=== PATIENT | male | born 1955 | race Caucasian/White ===

== ENCOUNTER 2021-03-02 08:56 | Outpatient (CLI) | payer MEDICARE, OTHER | END 2021-03-02 08:57 | disposition home or self-care (01) | LOC: DI 08:56 | PROVIDERS: ATTEND Internal Medicine | DX: I48.91 Unspecified atrial fibrillation (principal); R00.1 Bradycardia, unspecified; I51.7 Cardiomegaly; I35.1 Nonrheumatic aortic (valve) insufficiency; I70.0 Atherosclerosis of aorta | CPT/HCPCS: 93306 ==

== ENCOUNTER 2023-09-26 12:26 | Outpatient (CLI) | payer MEDICARE, OTHER ==
--- NOTE | 2023-09-26 22:47 | SLEEP CARE CONSULTATION ---
Information from patient questionnaire entered by Latisha Alcaraz. I have reviewed and concur with the information entered by Latisha Alcaraz. This document represents the service I personally performed and the decisions made by me, Km Catherine MD, [facility]. History of Present Illness Service Date and Time: 09/26/2023 1226 Reason for Visit: New patient Chief Complaint: reports: Snoring Date of Onset: ALWAYS Usual bedtime: 2200 Time it takes to fall asleep: 10MINS Snores at night: Yes Observed to quit breathing while asleep: No Sleeps alone due to snoring: Yes Number of times waking at night: 2 Reasons for waking at night: reports: Bathroom Toss, Turn, or Twitch while sleeping: No Recalls having dreams: Yes Feels refreshed in the morning: Yes Morning headache: No Sleepy or fatigued during the day: No Ever fallen asleep while driving: No Takes day naps: Yes Dreams during day naps: Yes Prior sleep studies: Yes Additional HPI information: I had the pleasure of seeing Mr. Miguel today regarding obstructive sleep apnea-hypopnea. As you know, he is a 67-year-old gentleman who was diagnosed with the sleep-disordered breathing 17 years ago in [place]. He struggled to use his CPAP for about 10 years then quit. His current machine is a ResMed AirSense 10. He wore a nasal mask. He reports sleeping fine without the CPAP. His main complaint is loud snore and he wonders if he should go back and use his CPAP again. His has not gotten any supplies from [facility] for many years. The patient tells me that he normally goes to bed around 10 pm, and it takes him approximately 10 minutes to fall asleep. He has been told that he snores loudly and irregularly at night. He has never been observed to stop breathing in his sleep. He can recall waking up on the average of 2 times during the night. Most of the time he wakes up because of having to use the bathroom. He has never awakened because of his own snoring, choking, or having to gasp for air. There is not a lot of tossing and turning in his sleep. No somniloquy (sleep talking) or somnambulism (sleep walking). Generally, he can recall having dreams. He usually does not have a morning headache. During the day he does not feel sleepy or fatigued. His score on [place] Sleepiness Scale is 6 out of 24. He never has fallen asleep while driving nor has had any accident due to sleepiness. He usually takes a nap during the day. He denies having impaired concentration during the day. - Parasomnia Symptoms Ever been unable to move upon waking from sleep: No Walks in sleep: No Talks in sleep: No Ever acted out dreams in sleep: No Ever felt weak in the knees when startled or emotional: No Bothered by creepy, crawly, restless sensations in legs: No Problems with memory or concentration: No Subjective Initial [place] Sleepiness Scale score: 6 (09/22/23) Past Medical History Past Medical History: reports: Coronary Heart Disease Social History The patient's occupation is a RETIRED. Patient is and lives in . Have you smoked in the past 12 months: No Alcohol use: No Caffeine use: No Family History Family history of sleep disordered breathing: No Allergies and Home Medications Known drug allergies: No Drug allergies reviewed: Yes Home medication list reviewed: Yes Allergy and home medication list: Allergies No Known Drug Allergies Allergy (Verified 09/26/23 08:55) Review of Systems Cardiovascular: denies: high blood pressure, palpitations, chest pain, irregular heart rate or pulse, leg or foot swelling, have to sleep sitting up, other Respiratory: denies: shortness of breath, wheeze, sputum production, chronic cough, other Gastrointestinal: denies: heartburn, difficulty swallowing, nausea, vomitting, diarrhea, abdominal pain, other Urinary: denies: incontinence, frequency, urgency, impotence, other Neurological: denies: headaches, seizure, head trauma, disorientation, speech dysfunction, gait or balance problems, fainting or unconsciousness, other Psychiatric: denies: Attention Deficit Hyperactivity, anxiety, depression, mood disorder, claustrophobia, other Ear/Nose/Throat: reports: wisdom teeth removed Endocrine: denies: thyroid disease, history of goiter, sluggishness, too hot or cold, excessive thirst, increased appetite, increased urination, unexplained weakness, other Musculoskeletal: denies: joint pain, neck pain, back pain, joint swelling, muscle pain or cramping, mobility problems, other Immunologic: reports: itching Physical Exam Vital signs obtained and entered by: LATISHA Pool MA Blood Pressure: 139/66 (RIGHT ARM) Cuff size: regular Heart Rate: 55 O2 Saturation: 96 Height: 5 ft 10 in Weight: 195 lb 9.6 oz Body Mass Index: 28.0 BMI Classification: Overweight Neck circumference: 16.5 Mood/affect: normal HEENT: No craniofacial malformation Nostrils: patent to airflow Turbinates: normal Septum: midline Mouth and throat: narrow oropharynx Soft palate: long Hard palate: normal Uvula: normal Uvula visualization: 25% Mallampati Class III Tongue: normal in size Tonsils: absent bilaterally Chin and jaw: normal size and position Neck: normal w/o lymphadenopathy or thyromegaly Heart: regular rate and rhythm Lungs: clear bilaterally Extremities: no edema or clubbing Neurologic: intact Impression and Plan IMPRESSION: 1. Obstructive Sleep Apnea-Hypopnea Syndrome, as previously diagnosed. The severity is unknown as we do not have the report of his sleep study from 17 years ago. The patient would like to start using his CPAP again but lacks supplies. I explained to him that in order for his insurance Medicare to cover the treatment, there has to be a recent sleep study to show significant sleep-disordered breathing and its severity. I informed the patient of what the sleep studies involve and after some discussion, he agreed to proceed. Plan: 1. Schedule an in-laboratory polysomnography. Do not use the CPAP at least one night prior to the sleep study. 2. Respironics Nuance nasal pillows given to him to use with his old machine while waiting for his sleep study. 3. Avoid alcohol, sedatives, and muscle relaxants around bedtime. 4. Attempt to lose weight. Mask provided: Yes Counseling Topics: Weight control Follow up with Sleep Care in: 1-2 months Follow up recommended for: Weight management Visit Type: In Office Time Spent with Patient (minutes): 15 Provider Statement: I spent 100% of the Face to Face Visit with the patient with greater than 50% spent counseling the patient and coordination of care.
[2023-09-26 22:52] VITALS: BP 139/66; O2SAT 96
== END 2023-09-26 12:27 | disposition home or self-care (01) ==
LOC: SC 12:26
PROVIDERS: ATTEND Internal Medicine Pulmonary Disease
DX: G47.33 Obstructive sleep apnea (adult) (pediatric) (principal)
CPT/HCPCS: 99202; G0463; 99212

== ENCOUNTER 2023-10-10 19:11 | Outpatient (CLI) | payer MEDICARE, OTHER | END 2023-10-10 19:12 | disposition home or self-care (01) | LOC: SC 19:11 | PROVIDERS: ATTEND Internal Medicine Pulmonary Disease | DX: G47.33 Obstructive sleep apnea (adult) (pediatric) (principal); G47.61 Periodic limb movement disorder | CPT/HCPCS: 95810 ==

== ENCOUNTER 2023-11-28 14:14 | Outpatient (CLI) | payer MEDICARE, OTHER ==
--- NOTE | 2023-11-28 17:45 | SLEEP CARE CONSULTATION ---
Information from patient questionnaire entered by Latisha Alcaraz. I have reviewed and concur with the information entered by Latisha Alcaraz. This document represents the service I personally performed and the decisions made by me, Km Catherine MD, [facility]. History of Present Illness Service Date and Time: 11/28/2023 1414 Current [place] Sleepiness Scale score: 7 (11/27/23) Additional HPI information: Mr. Miguel returned for follow up of the sleep study he had on 10-10-23. The polysomnography showed that the patient had reduced sleep efficiency due to prolonged awakening in the middle of the night. The sleep architecture was abnormal for sleep fragmentation and lack of slow wave sleep (N3). Respiratory monitoring showed severe obstructive sleep apnea-hypopnea (AHI = 31.8) associated with frequent arousals, oxyhemoglobin desaturation and moderate hypoxia (courtney oxygen saturation of 65%). Baseline oxygen saturation was normal. The respiratory events occurred more frequently during supine sleep (supine AHI = 50.3; non-supine = 23.59). Snore was intermittent and light in intensity. There was severe periodic leg movement of sleep contributing to the sleep fragmentation. Cardiac rhythm was normal sinus rhythm without significant arrhythmia. No abnormal behavior (parasomnia) observed during the night. The patient was informed of these findings. I explained to him the pathophysiology behind obstructive sleep apnea. We then spent quite a bit of time discussing different treatment options. For mild obstructive sleep apnea, surgery and oral appliance are alternatives to nasal CPAP therapy but in moderate or severe cases, nasal CPAP is the most effective and reliable treatment. Weight loss in an obese individual is strongly recommended. Presently, he has a ResMed AirSense 10 that he uses once a while to eliminate snoring. It is well over 5 years old. Sleep Study - Results Type of Sleep Study: Polysomnography (COMPLETED 10/10/23) Allergies and Home Medications Drug allergies reviewed: Yes Home medication list reviewed: Yes Allergy and home medication list: Allergies No Known Drug Allergies Allergy (Verified 11/23/23 13:56) Review of Systems Review of systems same as previous: Yes (NO CHANGE) Physical Exam Vital signs obtained and entered by: LATISHA Pool MA Blood Pressure: 138/72 (RIGHT ARM) Cuff size: regular Heart Rate: 56 O2 Saturation: 98 Height: 5 ft 10 in Weight: 197 lb 9.6 oz Body Mass Index: 28.3 BMI Classification: Overweight Impression and Plan IMPRESSION: 1. Obstructive Sleep Apnea-Hypopnea Syndrome, severe, associated with moderate hypoxemia and sleep fragmentation. The patient is surprisingly asymptomatic. As mentioned above, the patient will be started on an autoCPAP set between 4 and 12 cmH2O. Depending on his response and compliance he may be brought back for an overnight CPAP titration study. PLAN: 1. Prescription made for an autoCPAP, heated humidifier, and related supplies. 2. Attempt to lose weight and avoid alcohol consumption near bedtime. 3. Return for follow up after one month of using the CPAP. Counseling Topics: Weight loss health impact Prescriptions: Auto CPAP Follow up with Sleep Care in: 1-2 months Visit Type: In Office Time Spent with Patient (minutes): 15 Provider Statement: I spent 100% of the Face to Face Visit with the patient with greater than 50% spent counseling the patient and coordination of care.
[2023-11-28 17:46] VITALS: BP 138/72; O2SAT 98
== END 2023-11-28 14:15 | disposition home or self-care (01) ==
LOC: SC 14:14
PROVIDERS: ATTEND Internal Medicine Pulmonary Disease
DX: G47.33 Obstructive sleep apnea (adult) (pediatric) (principal); E66.3 Overweight; Z68.28 Body mass index [BMI] 28.0-28.9, adult
CPT/HCPCS: 99212; G0463